=== PATIENT | male | born 1930 | race Caucasian/White ===

== ENCOUNTER → 2021-05-06 | Outpatient (CLI) | payer MEDICARE, OTHER ==
--- NOTE | 2021-05-06 12:27 | FL ---
EXAMINATION TYPE: FL barium swallow w video DATE OF EXAM: 05/06/2021 CLINICAL HISTORY: 89-year-old male R13.10, aphasia and dysphagia, history of Parkinson's disease with trouble swallowing. TECHNIQUE: Deglutition study is performed utilizing thin liquid barium, honey and nectar thick liqui d barium, barium thick applesauce, and barium coated cracker. Total fluoroscopy time: 2 minutes 33 seconds. Total images: None. Real-time fluoroscopy support was provided to speech pathology. COMPARISON: None. FINDINGS: Swallow initiation was delayed with bolus free spilling to the level of the vallecula. There is gross aspiration that occurred before the swallow with thin liquids. [place] liquids shows mild silent aspi ration. This is improved with chin to maneuver and bolus control. No penetration or aspiration with the more thicker consistencies. There are moderate vallecular and piriform sinus residuals noted IMPRESSION: Delayed swallow. Gross aspiration before the swallow with thin liquids. Mild silent aspiration with n ectar liquids that improves with chin tuck and bolus control. Moderate residuals. Please refer to speech therapist notes for further details if necessary.
== END | disposition home or self-care (01) ==
LOC: RADFLMAIN 10:23
PROVIDERS: ATTEND Psychiatry & Neurology Neurology
DX: R13.10 Dysphagia, unspecified (principal)
CPT/HCPCS: 74230